=== PATIENT | female | born 1945 | race Caucasian/White ===

== ENCOUNTER 2024-07-29 07:54 | Day surgery (SDC) | payer MEDICARE, OTHER ==
[~2024-07-29 07:54] MED LIST: Sodium Chloride 0.9% 10 ML Syringe FLUSH PRN
[2024-07-29] MEDS ORDERED: Lidocaine 2% 100 MG/5 ML Syringe IVPUSH ONE (07:55)
[2024-07-29] MEDS ORDERED: Propofol 200 MG/20 ML SDV IV ONE (07:55)
[2024-07-29 08:31] VITALS: BP 134/88; PULSE 95
[2024-07-29] MEDS: Lactated Ringers 1,000 ML IV SCH (08:40)
[2024-07-29] MEDS: Simethicone Drops 40 MG/0.6 ML 30 ML Bottle ONE (09:00)
== END 2024-07-29 10:40 | disposition home or self-care (01) ==
LOC: FB.SDS 07:54
PROVIDERS: ATTEND Surgery
DX: D12.2 Benign neoplasm of ascending colon (principal); K63.5 Polyp of colon; K57.30 Diverticulosis of large intestine without perforation or abscess without bleeding; Z87.891 Personal history of nicotine dependence
CPT/HCPCS: 00811; 45381; 45385; 88305; 99100; A9270; J2704; J7120